=== PATIENT | female | born 1990 | race American Indian/Alaskan Native ===

== ENCOUNTER 2021-07-29 16:21 | Emergency (ER) | payer BC ==
[2021-07-29 18:05] VITALS: BP 126/96
[2021-07-29] MEDS ORDERED: FAMOTIDINE 20 MG TAB PO ONE (18:37)
[2021-07-29] MEDS ORDERED: diphenhydrAMINE 25 MG CAP PO ONE (18:37)
[2021-07-29] MEDS ORDERED: predniSONE 20 MG TAB PO ONE (18:37)
--- NOTE | 2021-07-29 18:50 | Emergency Department Report ---
- General Chief complaint: Skin/Abscess/Foreign Body Stated complaint: ALLERGIC REATION TO BED BUGS Time Seen by Provider: 07/29/21 18:22 Source: patient Mode of arrival: Ambulatory Limitations: No Limitations - History of Present Illness Initial comments: 31-year-old black female with a past medical history of asthma presents to the emergency department for evaluation of left upper arm redness and swelling. She states that she stayed in a hotel in [facility] on Monday night and woke up in the middle of the night with arm swelling and itching and noted a bedbug on her pillow. She states that she applied cortisone cream to the area but has not had any improvement. She presents with pain, swelling, and rash to left upper arm. She denies chest pain or tightness and shortness of breath. Denies swelling or rash to any other area of body. MD complaint: rash, insect bite/sting -: Gradual, days(s) (To) Location: RUE Severity: mild Severity scale (0 -10): 2 Quality: burning Consistency: constant Associated symptoms: itching Treatments Prior to Arrival: OTC topical medication - Related Data Previous Rx's Medication Instructions Recorded Last Taken Type Vit No.130/Iron/Folic 1 each PO QDAY #30 tablet 03/20/16 Unknown Rx [ Tablet] Diphenhydramine HCl/Zinc Acet [[facility] 28 gm TP TID PRN #1 tube 07/29/21 Unknown Rx Itch Relief Cream] Allergies Allergy/AdvReac Type Severity Reaction Status Date / Time No Known Allergies Allergy Unverified 08/20/15 11:14 Abscess Boil HPI - HPI Chief Complaint: Skin/Abscess/Foreign Body Stated Complaint: ALLERGIC REATION TO BED BUGS Time Seen by Provider: 07/29/21 18:22 Duration: 2 Days Location: Upper Extremity Severity: Mild History: Yes Pain, Yes Insect Bite, No Fever, No Purulent Drainage, No Numbness, No Foreign Body, No Previous History Home Medications: Previous Rx's Medication Instructions Recorded Last Taken Type Vit No.130/Iron/Folic 1 each PO QDAY #30 tablet 03/20/16 Unknown Rx [ Tablet] Diphenhydramine HCl/Zinc Acet [[facility] 28 gm TP TID PRN #1 tube 07/29/21 Unknown Rx Itch Relief Cream] Allergies/Adverse Reactions: Allergies Allergy/AdvReac Type Severity Reaction Status Date / Time No Known Allergies Allergy Unverified 08/20/15 11:14 ED Review of Systems ROS: Stated complaint: ALLERGIC REATION TO BED BUGS Other details as noted in HPI Constitutional: denies: chills, fever ENT: denies: congestion Respiratory: denies: cough, shortness of breath, wheezing Cardiovascular: denies: chest pain Gastrointestinal: denies: abdominal pain, nausea, vomiting Musculoskeletal: denies: back pain Skin: rash Neurological: denies: headache, weakness ED Past Medical Hx - Past Medical History Hx Asthma: Yes - Surgical History Hx Appendectomy: Yes Additional Surgical History: TONSILLECTOMY - Social History Smoking Status: Never Smoker - Medications Home Medications: Home Medications Medication Instructions Recorded Confirmed Last Taken Type Vit No.130/Iron/Folic 1 each PO QDAY #30 tablet 03/20/16 Unknown Rx [ Tablet] Diphenhydramine HCl/Zinc Acet [[facility] 28 gm TP TID PRN #1 tube 07/29/21 Unknown Rx Itch Relief Cream] ED Physical Exam - General Limitations: No Limitations General appearance: alert, in no apparent distress - Head Head exam: Present: atraumatic, normocephalic - Eye Eye exam: Present: normal appearance. Absent: conjunctival injection - Neck Neck exam: Present: normal inspection - Respiratory Respiratory exam: Present: normal lung sounds bilaterally. Absent: respiratory distress, wheezes, rales, rhonchi, stridor, chest wall tenderness, accessory muscle use - Cardiovascular Cardiovascular Exam: Present: regular rate, normal heart sounds - GI/Abdominal GI/Abdominal exam: Present: soft, normal bowel sounds. Absent: distended, tenderness, guarding, rebound, rigid - Expanded Upper Extremity Exam Left Upper Arm exam: Present: swelling, erythema. Absent: normal inspection (Noted to have several small bite wong surrounded by swelling and erythema. Patient states that area is pruritic), tenderness, abrasion, laceration, ecchymosis Elbow exam: Present: normal inspection (1 bite arcelia noted to elbow), swelling, erythema. Absent: tenderness Forearm Wrist exam: Present: normal inspection Hand Wrist exam: Present: normal inspection Vascular: Present: normal capillary refill, radial pulse. Absent: vascular compromise, Pallo - Back Exam Back exam: Present: normal inspection. Absent: tenderness - Neurological Exam Neurological exam: Present: alert, oriented X3, normal gait - Psychiatric Psychiatric exam: Present: normal affect, normal mood - Skin Skin exam: Present: warm, dry, intact, normal color ED Course Vital Signs 07/29/21 17:59 Temperature 99.0 F Pulse Rate 87 Respiratory 18 Rate Blood Pressure 126/96 Blood Pressure 126/96 [Right] O2 Sat by Pulse 100 Oximetry ED Medical Decision Making - Medical Decision Making 31-year-old black female with a past medical history of asthma presents to the emergency department for evaluation of left upper arm redness and swelling. She states that she stayed in a hotel in [facility] on Monday night and woke up in the middle of the night with arm swelling and itching and noted a bedbug on her pillow. She states that she applied cortisone cream to the area but has not had any improvement. She presents with pain, swelling, and rash to left upper arm. She denies chest pain or tightness and shortness of breath. Denies swelling or rash to any other area of body. Bite wong are consistent with pattern of bedbug bites. Patient will be treated with one-time dose of prednisone, Benadryl, and Pepcid. She will be discharged home with Benadryl/zinc ointment to use as needed for itching to the area. She is advised to take medications as prescribed and follow-up with primary care provider if no improvement or worsening symptoms. She is advised to return to the emergency department for any concerning symptoms. Critical care attestation.: If time is entered above; I have spent that time in minutes in the direct care of this critically ill patient, excluding procedure time. ED Disposition Clinical Impression: Local reaction to insect sting Qualifiers: Encounter type: initial encounter Injury intent: accidental or unintentional Qualified Code(s): T63.481A - Toxic effect of venom of other arthropod, accidental (unintentional), initial encounter Bedbug bite Qualifiers: Encounter type: initial encounter Qualified Code(s): W57.XXXA - Bitten or stung by nonvenomous insect and other nonvenomous arthropods, initial encounter Disposition: HOME / SELF CARE / HOMELESS Is pt being admited?: No Does the pt Need Aspirin: No Condition: Stable Instructions: Bedbugs, [id number], Insect Bite, Adult, [id number] Additional Instructions: Use cream as needed for itching. Follow-up with primary care provider if no improvement or worsening symptoms. Prescriptions: Diphenhydramine HCl/Zinc Acet [[facility] Itch Relief Cream] 28 gm TP TID PRN #1 tube PRN Reason: Itching Referrals: ARTEMIO ENRIQUEZ MD [Referring] - 3-5 Days Time of Disposition: 18:50
== END 2021-07-29 19:27 | disposition home or self-care (01) ==
LOC: ED 16:21
DX: T63.481A Toxic effect of venom of other arthropod, accidental (unintentional), initial encounter (principal); J45.909 Unspecified asthma, uncomplicated; Y92.89 Other specified places as the place of occurrence of the external cause; Y93.89 Activity, other specified; Y99.8 Other external cause status
CPT/HCPCS: 99282